=== PATIENT | female | born 1960 | race Caucasian/White ===

== ENCOUNTER 2017-09-13 11:59 | Emergency (ER) | payer MEDICARE ==
[~2017-09-13] VITALS: Ht 165.1 cm; Wt 73.0 kg
[2017-09-13 12:07] VITALS: BP 122/57; PULSE 73; RESP 16; TEMP 98.6; O2SAT 100
[2017-09-13] MEDS ORDERED: NEUR400C PO ×2 (12:23→12:25)
[2017-09-13] MEDS ORDERED: BACL20TA PO (12:24)
[2017-09-13] MEDS ORDERED: DIME120C PO (12:24)
--- NOTE | 2017-09-13 13:26 | PD ---
HPI Chief Complaint: GI Complaint Time Seen by Provider: 12:45 Travel History International Travel<30 days: No Contact w/Intl Traveler<30days: No Traveled to known affect area: No History of Present Illness HPI This 57-year-old female has 2 complaints. She states she has not had a bowel movement for 13 days. She is also since she has been having a discharge from her vagina. She says of discharge from her vagina seems like it is pus. It does have an odor at times. She is not having abdominal pain. She has a history of multiple sclerosis for 5 years as on medication for it. She has had multiple abdominal surgeries. She has had gastric bypass surgery. She has had surgery for cystocele in the past. PFS Past Medical History Diminished Hearing: No Tetanus Vaccination: < 5 Years Influenza Vaccination: Yes ?: Not Past Surgical History Hysterectomy: Yes Neurologic Surgery: Yes (MS) Social History Alcohol Use: No Tobacco Use: No Substance Use: No Allergies-Medications (Allergen,Severity, Reaction): Coded Allergies: ciprofloxacin (Verified Allergy, Intermediate, LIP SWELLING, HIVES, ) Reported Meds & Prescriptions Reported Meds & Active Scripts Active Reported Neurontin (Gabapentin) 400 Mg Cap 400 Mg PO QID NEB Tecfidera (Dimethyl Fumarate) 120 Mg Cap Unknown Dose PO TID For 7 days Baclofen 20 Mg Tab 20 Mg PO TID NEB Review of Systems General / Constitutional: No: Fever, Chills Eyes: No: Diploplia, Blurred Vision HENT: No: Headaches, Vertigo Cardiovascular: No: Chest Pain or Discomfort, Palpitations Respiratory: No: Cough, Shortness of Breath Gastrointestinal: Positive: Constipation, No: Nausea, Vomiting, Diarrhea Genitourinary: No: Urgency, Frequency Musculoskeletal: No: Myalgias, Arthralgias Skin: No Rash, No Itching Neurologic: No: Weakness Physical Exam Narrative GENERAL: Well-developed female SKIN: Focused skin assessment warm/dry. HEAD: Atraumatic. Normocephalic. EYES: Pupils equal and round. No scleral icterus. No injection or drainage. ENT: No nasal bleeding or discharge. Mucous membranes pink and moist. NECK: Trachea midline. No JVD. CARDIOVASCULAR: Regular rate and rhythm. No murmur appreciated. RESPIRATORY: No accessory muscle use. Clear to auscultation. Breath sounds equal bilaterally. GASTROINTESTINAL: Abdomen soft, non-tender, nondistended. Hepatic and splenic margins not palpable. There are multiple scars Pelvic: moderate amount of whitish discharge. No masses are felt MUSCULOSKELETAL: No obvious deformities. No clubbing. No cyanosis. No edema. NEUROLOGICAL: Awake and alert. No obvious cranial nerve deficits. Motor grossly within normal limits. Normal speech. PSYCHIATRIC: Appropriate mood and affect; insight and judgment normal. Data Data Last Documented VS Vital Signs Date Time Temp Pulse Resp B/P (MAP) Pulse Ox O2 Delivery O2 Flow Rate FiO2 09/13/17 14:37 78 16 110/58 (75) 95 Room Air 09/13/17 12:07 98.6 Orders Orders Complete Blood Count With Diff (09/13/17 13:12) Comprehensive Metabolic Panel (09/13/17 13:12) Urinalysis - C+S If Indicated (09/13/17 13:12) Wet Prep Profile (09/13/17 13:12) Wound Culture And Gram Stain (09/13/17 13:12) Ct Abd/Pel W Iv Contrast(Rout) (09/13/17 13:26) Oral Contrast - Adult (09/13/17 13:32) Diatrizoate Liq ( Gastroview Liq) (09/13/17 13:41) Iohexol 350 Inj (Omnipaque 350 Inj) (09/13/17 15:05) Labs Laboratory Tests Test 09/13/17 13:25 09/13/17 13:30 09/13/17 14:42 Clue Cells (Wet Prep) NONE SEEN Vaginal Trichomonas (Wet Prep) NONE SEEN Vaginal Yeast (Wet Prep) NONE SEEN White Blood Count 5.8 TH/MM3 Red Blood Count 4.30 MIL/MM3 Hemoglobin 12.3 GM/DL Hematocrit 38.6 % Mean Corpuscular Volume 89.9 FL Mean Corpuscular Hemoglobin 28.6 PG Mean Corpuscular Hemoglobin Concent 31.9 % Red Cell Distribution Width 15.2 % Platelet Count 319 TH/MM3 Mean Platelet Volume 7.4 FL Neutrophils (%) (Auto) 65.4 % Lymphocytes (%) (Auto) 25.5 % Monocytes (%) (Auto) 6.4 % Eosinophils (%) (Auto) 2.0 % Basophils (%) (Auto) 0.7 % Neutrophils # (Auto) 3.8 TH/MM3 Lymphocytes # (Auto) 1.5 TH/MM3 Monocytes # (Auto) 0.4 TH/MM3 Eosinophils # (Auto) 0.1 TH/MM3 Basophils # (Auto) 0.0 TH/MM3 CBC Comment DIFF FINAL Differential Comment Blood Urea Nitrogen 10 MG/DL Creatinine 0.72 MG/DL Random Glucose 101 MG/DL Total Protein 7.3 GM/DL Albumin 3.9 GM/DL Calcium Level 8.6 MG/DL Alkaline Phosphatase 130 U/L Aspartate Amino Transf (AST/SGOT) 17 U/L Alanine Aminotransferase (ALT/SGPT) 22 U/L Total Bilirubin 0.3 MG/DL Sodium Level 134 MEQ/L Potassium Level 4.0 MEQ/L Chloride Level 98 MEQ/L Carbon Dioxide Level 28.8 MEQ/L Anion Gap 7 MEQ/L Estimat Glomerular Filtration Rate 83 ML/MIN Urine Color YELLOW Urine Turbidity CLEAR Urine pH 6.0 Urine Specific [place] 1.006 Urine Protein NEG mg/dL Urine Glucose (UA) NEG mg/dL Urine Ketones NEG mg/dL Urine Occult Blood SMALL Urine Nitrite NEG Urine Bilirubin NEG Urine Leukocyte Esterase SMALL Urine WBC 0-2 /hpf Urine Squamous Epithelial Cells 0-5 /hpf Microscopic Urinalysis Comment CULT NOT INDICATED MDM Medical Decision Making Medical Screen Exam Complete: Yes Emergency Medical Condition: Yes Medical Record Reviewed: Yes Differential Diagnosis Differential includes pelvic abscess with fistula vagina, vaginitis, constipation constipation Narrative Course CT scan of the abdomen pelvis with done. There a stool seen throughout the colon. There is no evidence of bowel obstruction. No pelvic abscesses seen PresSsion his vaginitis. Patient will be treated with Flagyl. I will prescribe GoLYTELY for constipation Diagnosis Primary Impression: Vaginitis Additional Impression: Constipation Scripts Fluconazole (Diflucan) 150 Mg Tab 150 MG PO ONCE for Infection, #1 TAB 0 Refills Prov: Cyrus Crawford MD 09/13/17 Peg-Electrolytes (Golytely 236 gm) 4,000 Ml Soln 4000 ML PO ONCE for Bowel Cleanser, #1 CONTAINER 0 Refills Prov: Cyrus Crawford MD 09/13/17 Metronidazole (Flagyl) 500 Mg Tab 500 MG PO TID for Infection for 7 Days, TAB 0 Refills Prov: Cyrus Crawford MD 09/13/17 Disposition: 01 DISCHARGE HOME Condition: Stable Cyrus Crawford MD Sep 13, 2017 13:26
[2017-09-13] MEDS ORDERED: DIATRIZOATE MEGLUM/DIATRIZOATE SOD 9 ML CUP ONE (13:41)
[2017-09-13 13:45] LABS: AUTOMATED NEUTROPHIL # 3.8 TH/MM3 (1.8-7.7); BASOPHIL % 0.7 % (0.0-2.0); EOSINOPHIL # 0.1 TH/MM3 (0-0.4); HEMATOCRIT 38.6 % (35.0-46.0); HEMOGLOBIN 12.3 GM/DL (11.6-15.3); LYMPH % 25.5 % (9.0-44.0); LYMPHOCYTE # 1.5 TH/MM3 (1.0-4.8); MEAN CELL VOLUME 89.9 FL (80.0-100.0); MEAN CORPUSCULAR HEMOGLOBIN 28.6 PG (27.0-34.0); MEAN CORPUSCULAR HGB CONC 31.9 % (32.0-36.0); MEAN PLATELET VOLUME 7.4 FL (7.0-11.0); MONO % 6.4 % (0.0-8.0); MONOCYTE # 0.4 TH/MM3 (0-0.9); NEUT % 65.4 % (16.0-70.0); PLATELET COUNT 319 TH/MM3 (150-450); RED CELL DISTRIBUTION WIDTH 15.2 % (11.6-17.2); WHITE BLOOD COUNT 5.8 TH/MM3 (4.0-11.0)
[2017-09-13 14:09] LABS: CHLORIDE 98 MEQ/L (98-107); SODIUM (NA) 134 MEQ/L (136-145)
[2017-09-13 14:12] LABS: ALBUMIN 3.9 GM/DL (3.4-5.0); BICARBONATE 28.8 MEQ/L (21.0-32.0); CALCIUM 8.6 MG/DL (8.5-10.1)
[2017-09-13 14:13] LABS: BLOOD UREA NITROGEN 10 MG/DL (7-18); GLUCOSE,RANDOM 101 MG/DL (74-106)
[2017-09-13 14:15] LABS: ALT (GPT) 22 U/L (10-53)
[2017-09-13 14:16] LABS: AST (GOT) 17 U/L (15-37); CREATININE 0.72 MG/DL (0.50-1.00); GLOMERULAR FILTRATION RATE 83 ML/MIN (>89)
[2017-09-13 14:17] LABS: TOTAL BILIRUBIN ADULT 0.3 MG/DL (0.2-1.0); TOTAL PROTEIN 7.3 GM/DL (6.4-8.2)
[2017-09-13 14:18] LABS: ALKALINE PHOSPHATASE 130 U/L (45-117)
[2017-09-13 14:37] VITALS: BP 110/58; PULSE 78; RESP 16; O2SAT 95
[2017-09-13 14:53] LABS: BILIRUBIN, URINE NEG (NEG); BLOOD, URINE SMALL (NEG); GLUCOSE,URINE NEG (NEG); KETONE, URINE NEG (NEG); NITRITE,URINE NEG (NEG); URINE LEUKOCYTE ESTERASE SMALL (NEG)
[2017-09-13 15:01] LABS: SQUAMOUS EPITHELIAL CELL URINE 0-5 /hpf (0-5); URINE COLOR YELLOW (YELLW/STRAW); WBC, URINE 0-2 /hpf (0-5)
[2017-09-13] MEDS ORDERED: IOHEXOL 350 MG/ML 10 ML VIAL (for RAD DIAG) IVCONTRAST ONE (15:05)
--- NOTE | 2017-09-13 15:17 | RADRPT ---
EXAM DATE/TIME: 09/13/2017 14:57 [facility] COMPARISON: No previous studies available for comparison. INDICATIONS : Malodorous vaginal discharge. Diffuse abdomen pain. Constipation x 2 weeks. Evaluate for abscess. IV CONTRAST: 85 cc Omnipaque 350 (iohexol) IV ORAL CONTRAST: Prescribed oral contrast ingested. RADIATION DOSE: 11.72 CTDIvol (mGy) MEDICAL HISTORY : Multple sclerosis. SURGICAL HISTORY : Hysterectomy. Gastric bypass. ENCOUNTER: Initial ACUITY: 2 weeks PAIN SCALE: 5/10 LOCATION: Bilateral lower quadrant TECHNIQUE: Volumetric scanning of the abdomen and pelvis was performed. Using automated exposure control and ad justment of the mA and/or kV according to patient size, radiation dose was kept as low as reasonably achievable to obtain optimal diagnostic quality images. DICOM format image data is available electro nically for review and comparison. FINDINGS: LOWER LUNGS: The visualized lower lungs are clear. Numerous surgical trauma GE junction LIVER: Homogeneous density without lesion. There is mild dilatation of the intrahepatic biliary tree status post cholecystectomy SPLEEN: Normal size without lesion. PANCREAS: Within normal limits. KIDNEYS: Normal in size and shape. There is no mass, stone or hydronephrosis. ADRENAL GLANDS: Within normal limits. VASCULAR: There is no aortic aneurysm. BOWEL/MESENTERY: Is significant stool throughout the colon. No evidence of bowel obstruction. Small bowel is nondilate d.. ABDOMINAL WALL: Within normal limits. RETROPERITONEUM: There is no lymphadenopathy. BLADDER: No wall thickening or mass. REPRODUCTIVE: Within normal limits. INGUINAL: There is no lymphadenopathy or hernia. MUSCULOSKELETAL: Within normal limits for patient age. CONCLUSION: Status post cholecystectomy with expected intrahepatic biliary tree dilatation. Femoral stool through out the colon. No evidence of bowel obstruction. No deep pelvic abscess is identified. Venu Colon MD on September 13, 2017 at 15:10 Board Certified Radiologist. This report was verified electronically.
[2017-09-13] MEDS ORDERED: METR-1 PO (15:22)
[2017-09-13] MEDS ORDERED: COLY4000S PO (15:23)
[2017-09-13] MEDS ORDERED: DIFL150T PO (15:24)
== END 2017-09-13 15:37 | disposition home or self-care (01) ==
LOC: PHED 11:59
DX: N76.0 Acute vaginitis (principal); K59.00 Constipation, unspecified; G35 Multiple sclerosis; Z98.84 Bariatric surgery status
CPT/HCPCS: 74177; 80053; 81001; 85025; 87070; 87210; 99284; Q9963; Q9967